=== PATIENT | male | born 1995 | race Caucasian/White ===

== ENCOUNTER 2019-12-20 10:37 | Emergency (ER) | payer BC, SELFPAY ==
--- NOTE | ~2019-12-20 | CT_ITS ---
EXAMINATION: CT brain wo con DATE: 12/20/2019 13:05 INDICATION: Syncope. TECHNIQUE: Computed tomography (CT) of the head was performed without intravenous contrast. The mA wa s adjusted according to patient size. Iterative reconstruction technique was employed. The dose-lengt h product was 681.00 mGy-cm. COMPARISON: None FINDINGS: There is no intracranial hemorrhage, acute infarction, or abnormal intracranial mass lesion . The ventricles are normal in size. There is mild mucosal thickening in the ethmoid sinuses. The mas toid air cells are normal. The orbits are normal. IMPRESSION: 1. Normal brain. Reviewed, dictated and finalized at location B. IMPRESSION: 1. Normal brain.
--- NOTE | ~2019-12-20 | CT_ITS ---
EXAMINATION: CT facial bones wo con DATE: 12/20/2019 13:05 INDICATION: Facial pain post fall TECHNIQUE: Computed tomography (CT) of the facial bones and maxillofacial region was performed withou t intravenous contrast. Coronal reconstructions were obtained. Automated exposure control and iterati ve reconstruction technique were employed. The dose-length product was 305.72 mGy-cm. COMPARISON: None. FINDINGS: There is a fracture of the left nasal bone with approximately 1 mm depression and mild angulation. Mi ld soft tissue swelling along the lateral aspect of the base of the nose. There is also a small mildl y angulated fracture fragment at the anteriormost tip of the nasal process of the left maxilla. No ot her maxillofacial fractures identified. Orbits are normal. Mild mucoperiosteal thickening in the left maxillary sinus. Temporomandibular joints are normal. Small disc bulges at C4-C5. Visualized cervica l spine is otherwise unremarkable. IMPRESSION: 1. Mildly displaced, mildly angulated left nasal bone fracture and tiny mildly angulated fracture of the tip of the nasal process of the left maxilla. Reviewed, dictated and finalized at location A.
--- NOTE | ~2019-12-20 | XR_ITS ---
EXAMINATION: XR chest 2V DATE: 12/20/2019 11:52 INDICATION: Mid chest pain. TECHNIQUE: Frontal and lateral views of the chest were obtained on 3 radiographs. COMPARISON: None. FINDINGS: The chest demonstrates clear lungs without pneumonia, pleural effusion, or pneumothorax. Th e heart size is normal. IMPRESSION: 1. No acute cardiopulmonary disease. Reviewed, dictated and finalized at location B.
[2019-12-20 10:43] VITALS: BP 113/72; PULSE 80; RESP 20; TEMP 37.1; O2SAT 99
--- NOTE | 2019-12-20 10:47 | ECG_ITS ---
Measurements Intervals [place] Rate: 73 P: 61 WI: 136 QRS: 89 QRSD: 102 T: 56 QT: 377 QTc: 417 Interpretive Statements SINUS RHYTHM NORMAL ECG Electronically Signed On 12-20-2019 11:15:47 CDT by Reuben Ghotra D.O.
[2019-12-20 11:02] LABS: Basophils Percent Auto 0.5 % (0.2-1.2); Eosinophils Absolute Auto 0.1 K/mm3 (0-0.3); Eosinophils Percent Auto 1.5 % (0-4.4); Hematocrit 46.4 % (42.0-52.0); Hemoglobin 16.6 g/dL (14.0-18.0); Immature Granulocyte Absolute 0.03 K/mm3 (0.00-0.031); Immature Granulocyte Percent A 0.5 % (0-0.5); Lymphocytes Absolute Auto 1.39 K/mm3 (0.9-3.2); Lymphocytes Percent Auto 21.4 % (18.3-44.2); Mean Corpuscular HGB Conc 35.8 g/dl (32-36); Mean Corpuscular Hemoglobin 33.3 pg (26-34); Monocytes Absolute Auto 0.6 K/mm3 (0.1-0.6); Monocytes Percent Auto 8.8 % (2.6-8.5); Neutrophils Absolute Auto 4.4 K/mm3 (1.3-6.7); Neutrophils Percent Auto 67.3 % (45.5-73.1); Platelet Count Result 222 k/mm3 (150-375); Red Blood Count 4.99 M/mm3 (4.6-6.20); Red Cell Distribution Width 11.9 % (11.5-14.5); White Blood Count 6.5 K/mm3 (4.5-10.0)
[2019-12-20 11:12] LABS: INR 1.1; Prothrombin Time 13.5 Seconds (11.1-14.7)
[2019-12-20 11:13] LABS: Partial Thromboplastin Time 34.9 SECONDS (22.3-36.8)
[2019-12-20 11:14] LABS: Anion Gap 8 mmol/L (8-16); Blood Urea Nitrogen 4 mg/dL (9-20); Calcium 9.5 mg/dL (8.4-10.2); Carbon Dioxide 28 mmol/L (22-30); Chloride 102 mmol/L (98-107); Estimated CRCL calculation 152 ml/min; Estimated Glomerular Filt Rate > 60; Glucose 105 mg/dL (75-110); Potassium 4.1 mmol/L (3.4-5.0); Sodium 138 mmol/L (137-145)
[2019-12-20] MEDS: ASPIRIN 81 MG CHEWABLE TABLET 324 MG PO (11:15)
[2019-12-20 11:26] LABS: Troponin I < 0.012 ng/mL (0.000-0.034)
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
[2019-12-20 12:00] VITALS: BP 120/80; PULSE 63; RESP 18; O2SAT 96
[2019-12-20 12:09] LABS: D Dimer 0.27 ug/mL (<0.48)
--- NOTE | 2019-12-20 13:03 | PC.NURSE ---
STILL AWAITING PT RETURN FROM [facility].
[2019-12-20 13:20] VITALS: BP 107/64; PULSE 53; RESP 12; O2SAT 97
[2019-12-20 13:21] VITALS: BP 107/64; PULSE 93
[2019-12-20 13:22] VITALS: BP 101/76; BP 113/76; PULSE 74; PULSE 80
--- NOTE | 2019-12-20 13:23 | PC.NURSE ---
pt refused iv, erp aware.
--- NOTE | 2019-12-20 13:30 | PC.NURSE ---
ERP AT BEDSIDE FOR PT RESULTS.
[2019-12-20 13:45] VITALS: BP 120/68; PULSE 62; RESP 16; O2SAT 100
== END 2019-12-20 13:46 | disposition home or self-care (01) ==
PROVIDERS: Emergency Provider General Practice
DX: S02.2XXA Fracture of nasal bones, initial encounter for closed fracture (principal); R55 Syncope and collapse; R07.89 Other chest pain; W19.XXXA Unspecified fall, initial encounter
CPT/HCPCS: 36415; 70450; 70486; 71046; 80048; 84484; 85025; 85380; 85610; 85730; 93005; 99284; A9270